=== PATIENT | female | born 1980 | race Caucasian/White ===

== ENCOUNTER → 2018-12-22 | Outpatient (CLI) | payer MEDICAID | LOC: FIMAGING 12:38 | PROVIDERS: ATTEND Midwife | DX: O09.522 Supervision of elderly multigravida, second trimester (principal); Z3A.13 13 weeks gestation of pregnancy ==

== ENCOUNTER → 2019-02-01 | Outpatient (CLI) | payer MEDICAID | LOC: FIMAGING 11:53 | PROVIDERS: ATTEND Midwife | DX: O09.522 Supervision of elderly multigravida, second trimester (principal); O36.8920 Maternal care for other specified fetal problems, second trimester, not applicable or unspecified; Z3A.19 19 weeks gestation of pregnancy ==